=== PATIENT | female | born 1955 | race Caucasian/White ===

== ENCOUNTER 2016-12-19 16:55 | Observation (INO) | payer OTHER ==
[2016-12-19 17:11] VITALS: BP 150/77; RESP 16; TEMP 99; O2SAT 99
[2016-12-19] MEDS ORDERED: Iohexol 240 (50 ml) PO STA (18:00)
--- NOTE | 2016-12-19 18:17 | ED PDOC ---
HPI: Chest Pain Time Seen by Provider: 12/19/16 17:23 Chief Complaint (Nursing): Chest Pain Chief Complaint (Provider): Chest pain History Per: Patient History/Exam Limitations: no limitations Onset/Duration Of Symptoms: Hrs (3) Current Symptoms Are (Timing): Still Present Severity: Moderate Quality: "Pain" Additional History Per: Patient Additional Complaint(s): The patient is a 61yo female, past medical history of hypertension, presents to the ED for evaluation of chest pain, which started around 3pm today. Patient reports the pain is mid-sternal and radiates to her back; patient states the initial instance was severe and that she had difficulty tolerating secretions. She reports being unable to swallow her own saliva but states her symptoms resolved after a couple minutes. Patient states she presented to the ED because she had several more similar episodes and is unable to tolerate swallowing. She also reports associated back pain and states she has had similar episodes going on for a couple months and was given omeprazole. Patient also reports mild epigastric pain which has since resolved; she denies any nausea or vomiting. She does report mild lower leg swelling but denies any shortness of breath. She offers no additional medical complaints. Past Medical History Reviewed: Historical Data, Nursing Documentation, Vital Signs Vital Signs: Last Vital Signs Temp 99.0 F 12/19/16 17:09 Pulse 93 H 12/19/16 21:13 Resp 16 12/19/16 17:09 BP 150/77 12/19/16 17:09 Pulse Ox 99 12/19/16 21:13 - Medical History PMH: Diabetes, HTN Denies: Chronic Kidney Disease - Surgical History Surgical History: Cholecystectomy - Family History Family History: States: [place] (pts mother diagnosed with cad in her 30s), Diabetes , Hypertension - Home Medications Home Medications: Ambulatory Orders Medication Instructions Recorded Allopurinol 100 mg PO DAILY 09/01/14 Fish Oil [[place]-3] 1,000 mg PO MOTUWETHFR 09/01/14 HCTZ/Losartan Potassium [Hyzaar 1 tab PO DAILY 09/01/14 12.5 mg-50 mg] Metformin Hydrochloride [Metformin] 500 mg PO BID 09/01/14 amLODIPine [Norvasc] 5 mg PO HS 09/01/14 Allopurinol [Zyloprim] 100 mg PO DAILY #0 tab 09/02/14 Aspirin [Aspirin Chewable] 81 mg PO DAILY #0 chew 09/02/14 HCTZ/Losartan Potassium [Hyzaar 1 tab PO DAILY #0 tab 09/02/14 12.5 mg-50 mg] [id number] Ethyl Esters 1 GM 1 gm PO MOTUWETHFR #0 sgl 09/02/14 [Lovaza] amLODIPine [Norvasc] 5 mg PO HS #0 tab 09/02/14 metFORMIN [glucOPHAGE] 500 mg PO BID #0 tab 09/02/14 Ciprofloxacin HCl [Cipro] 250 mg PO BID #6 tab 12/19/16 Omeprazole Magnesium [Prilosec Otc] 20 mg PO DAILY #30 tcp 12/19/16 Sucralfate [Carafate] 1 gm PO QID PRN #20 dose 12/19/16 - Allergies Allergies/Adverse Reactions: Allergies Allergy/AdvReac Type Severity Reaction Status Date / Time shellfish derived Allergy ANAPHYLAXIS Verified 12/19/16 17:06 Review of Systems ROS Statement: Except As Marked, All Systems Reviewed And Found Negative (as per HPI) Cardiovascular: Positive for: Chest Pain Respiratory: Positive for: Shortness of Breath Gastrointestinal: Positive for: Abdominal Pain (mild epigastric pain). Negative for: Vomiting Musculoskeletal: Negative for: Other (leg swelling) Physical Exam - Reviewed Nursing Documentation Reviewed: Yes Vital Signs Reviewed: Yes - Physical Exam Appears: Positive for: Well, Non-toxic, Uncomfortable (minimal painful distress) Head Exam: Positive for: ATRAUMATIC, NORMAL INSPECTION, NORMOCEPHALIC Skin: Positive for: Normal Color, Warm. Negative for: Rash Eye Exam: Positive for: Normal appearance ENT: Positive for: Other (tacky mucus mebranes) Neck: Positive for: Normal, Supple Cardiovascular/Chest: Positive for: Regular Rate, Rhythm Respiratory: Positive for: Normal Breath Sounds. Negative for: Respiratory Distress Gastrointestinal/Abdominal: Positive for: Normal Exam, Soft. Negative for: Tenderness Back: Positive for: Normal Inspection Extremity: Positive for: Normal ROM. Negative for: Pedal Edema, Deformity, Swelling Neurologic/Psych: Positive for: Alert, Oriented. Negative for: Motor/Sensory Deficits - Laboratory Results Result Diagrams: 12/19/16 18:17 12/19/16 18:17 - ECG ECG: Positive for: Interpreted By Me, Viewed By Me ECG Rhythm: Positive for: Normal QRS, Normal ST Segment, Sinus Rhythm Rate: 93 O2 Sat by Pulse Oximetry: 99 (RA) Pulse Ox Interpretation: Normal Medical Decision Making Medical Decision Making: Time: 1739 Impression: Atypical chest pain Differential: ACS, gastric reflux, esophageal stricture or obstruction, costochondritis Plan: -- Protonix 40 gm IVP -- CT CHest w/o contrast -- Labs -- EKG Reassess Scribe Attestation: Documented by Leanna Brown acting as a scribe for Jaimee Fu MD. Provider Attestation: All medical record entries made by the Scribe were at my direction and personally dictated by me. I have reviewed the chart and agree that the record accurately reflects my personal performance of the history, physical exam, medical decision making, and the department course for this patient. I have also personally directed, reviewed, and agree with the discharge instructions and disposition. ED OBSERVATION Date of observation admission: 12/19/16 Time of observation admission: 17:30 - Goals of Observation Goals of observation are:: Patient awaiting ED workup. - Progress Note Progress Note: 20:00 Pt stable. Bison better after IV Protonix. UA c/w UTI No emergently significant lab abnormalities. 12/19/16 20:20 CT Chest IMPRESSION: - No evidence of significant acute process on this unenhanced exam. - Findings suspicious for underlying portal hypertension due to chronic liver disease. There is mild cirrhotic change in the liver, possible esophageal varices, and mild splenomegaly. - Incidental breast lesion, as described. See recommendations above. - Mild emphysematous changes. - See above for remaining findings. 12/19/16 21:12 CT findings discussed with patient who expresses understanding. Disposition - Clinical Impression Clinical Impression: Atypical chest pain, Hiatal hernia Counseled Patient/Family Regarding: Studies Performed, Diagnosis, Need For Followup, Rx Given - Disposition Disposition: Routine/Home Disposition Time: 17:30 Condition: IMPROVED
[2016-12-19] MEDS ORDERED: Iohexol 240 (50 ml) ONE (18:18)
[2016-12-19 18:22] LABS: BASO % 0.6 % (0.0-2.0); EOS # 0.2 K/uL (0.0-0.7); EOS % 2.3 % (0.0-4.0); HEMATOCRIT 40.8 % (34.0-47.0); LYMPH # 2.2 K/uL (1.0-4.3); LYMPH % 28.8 % (20.0-40.0); MEAN CELL VOLUME 92.9 fl (81.0-99.0); MEAN CORPUSCULAR HEMOGLOBIN 31.7 pg (27.0-31.0); MEAN CORPUSCULAR HGB CONC 34.1 g/dL (33.0-37.0); MEAN PLATELET VOLUME 10.5 fl (7.2-11.7); MONO # 0.4 K/uL (0.0-0.8); MONO % 4.8 % (0.0-10.0); NEUT # 4.9 K/uL (1.8-7.0); NEUT % 63.5 % (50.0-75.0); RED CELL DISTRIBUTION WIDTH 13.9 % (11.5-14.5); WHITE BLOOD COUNT 7.8 K/uL (4.8-10.8)
[2016-12-19 18:34] LABS: ALB/GLOB RATIO 1.5 (1.0-2.1); ALKALINE PHOSPHATASE 134 U/L (38-126); ALT/SGPT 70 U/L (9-52); AST/SGOT 56 U/L (14-36); BILIRUBIN,TOTAL 0.5 mg/dl (0.2-1.3); BLOOD UREA NITROGEN 17 mg/dl (7-17); CALCIUM 9.9 mg/dL (8.4-10.2); CARBON DIOXIDE 23 mmol/L (22-30); CHLORIDE 103 mmol/L (98-107); GFR AFRICAN-AMERICAN > 60; GLUCOSE,RANDOM 113 mg/dL (65-105); LIPASE 423 U/L (23-300); POTASSIUM 3.8 MMOL/L (3.6-5.0); SODIUM 141 mmol/l (132-148); TOTAL PROTEIN 7.9 G/DL (6.3-8.2)
[2016-12-19 18:39] VITALS: PULSE 93
[2016-12-19 19:32] LABS: RBC URINE 10 /hpf (0-3); URINE BACTERIA RARE (<OCC); URINE BILIRUBIN NEGATIVE (NEGATIVE); URINE BLOOD SMALL (NEGATIVE); URINE CALCIUM OXALATE CRYSTALS FEW /hpf (<OCC); URINE COLOR YELLOW (YELLOW); URINE GLUCOSE (UA) NEG (Normal); URINE KETONE TRACE mg/dL (NEGATIVE); URINE LEUKOCYTE ESTERASE LARGE Leu/uL (Negative); URINE PROTEIN 100 mg/dL (NEGATIVE); URINE UROBILINOGEN 0.2-1.0 mg/dL (0.2-1.0); WBC URINE 11 /hpf (0-5)
--- NOTE | 2016-12-19 20:14 | CT ---
EXAM: CT Chest Without Intravenous Contrast EXAM DATE/TIME: 12/19/2016 5:59 PM CLINICAL HISTORY: 61 years old, female; Pain; Sternal or substernal pain; Additional info: Chest pain w swallowing. Sent phy. Doc. With request TECHNIQUE: Axial computed tomography images of the chest without intravenous contrast. All CT scans at this facility use one or more dose reduction techniques, viz.: automated exposure control; ma/kV adjustment per patient size (including targeted exams where dose is matched to indication; i.e. head); or iterative reconstruction technique. Coronal and sagittal reformatted images were created and reviewed. COMPARISON: No relevant prior studies available. FINDINGS: LUNGS: Mild emphysematous changes, greatest in the right lung apex. No evidence of significant focal consolidation/infiltrate in the lungs. No evidence of diffuse pulmonary vascular congestion. PLEURAL SPACE: No pneumothorax or significant pleural effusions seen. HEART: No evidence of significant pericardial effusion. MEDIASTINUM: Small hiatal hernia. Possible esophageal varices, abutting the hiatal hernia and distal esophagus. No evidence of esophageal perforation. BONES/JOINTS: No acute fractures or other acute bony abnormality noted. SOFT TISSUES: Incidental 6 mm right breast nodule, image 9/series 602, which appears to have well-circumscribed margins. This could represent a fibroadenoma or lymph node, but it is indeterminate by CT. Recommend further evalation with mammography and/or breast ultrasound, on a nonemergent basis. VASCULATURE: Scattered atherosclerotic calcification of the thoracic aorta. Exam is nondiagnostic for aortic dissection, secondary to unenhanced technique. No evidence of thoracic aortic aneurysm. LIVER: Liver has a mildly nodular contour, suspicious for early cirrhotic change. Recommend clinical correlation. GALLBLADDER AND BILE DUCTS: Biliary ductal dilatation, which may be related to the post cholecystectomy state. SPLEEN: Spleen appears mildly enlarged, measuring 13 cm in AP dimensions. IMPRESSION: - No evidence of significant acute process on this unenhanced exam. - Findings suspicious for underlying portal hypertension due to chronic liver disease. There is mild cirrhotic change in the liver, possible esophageal varices, and mild splenomegaly. - Incidental breast lesion, as described. See recommendations above. - Mild emphysematous changes. - See above for remaining findings.
--- NOTE | 2016-12-20 23:42 | CARD ---
APPROVED REPORT EKG Measurement Heart [id number] ID [id number] <Conclusion> Normal sinus rhythm Left axis deviation Abnormal ECG
== END 2016-12-19 21:16 | disposition home or self-care (01) ==
LOC: H.ER 16:55 → H.EROBSV 17:30
PROVIDERS: ADMIT Emergency Medicine; ATTEND Emergency Medicine
DX: R07.89 Other chest pain (principal); E11.9 Type 2 diabetes mellitus without complications; I10 Essential (primary) hypertension; Z79.899 Other long term (current) drug therapy; R10.13 Epigastric pain; Z79.84 Long term (current) use of oral hypoglycemic drugs; M54.9 Dorsalgia, unspecified; Z87.891 Personal history of nicotine dependence
CPT/HCPCS: 36415; 71250; 80053; 81003; 82948; 83690; 84484; 85025; 87086; 93005; 96374; 99282; C9113; G0378